=== PATIENT | female | born 1990 | race Caucasian/White ===

== ENCOUNTER 2019-09-28 10:37 | Inpatient (IN) | payer OTHER ==
[2019-09-28] MEDS ORDERED: Lidocaine 1% 50 ML MDV INJECT PRN (17:38)
[2019-09-28] MEDS ORDERED: Tranexamic Acid 1,000 MG in Sodium Chloride 0.9% 100 ML IV PRN (17:38)
[2019-09-28] MEDS ORDERED: Sodium Chloride 0.9% 2.5 ML Syringe FLUSH PRN (17:38)
[2019-09-28] MEDS ORDERED: Misoprostol 200 MCG Tab PO PRN (17:38)
[2019-09-28] MEDS ORDERED: Butorphanol 1 MG/ML SDV IVPUSH PRN (17:38)
[2019-09-28] MEDS ORDERED: Misoprostol 25 MCG (1/4 of 100 MCG) Tab VAG PRN ×2 (17:38)
[2019-09-28] MEDS ORDERED: Terbutaline 1 MG/ML SDV SUBCUT PRN (17:38)
[2019-09-28] MEDS ORDERED: Sodium Chloride 0.9% 10 ML Syringe FLUSH PRN (17:38)
[2019-09-28] MEDS ORDERED: Sodium Chloride 0.9% 10 ML SDV IV PRN (17:38)
[2019-09-28] MEDS ORDERED: Water For Irrigation,Sterile 1,000 ML Container IRR PRN (17:38)
[2019-09-28] MEDS ORDERED: Nalbuphine 10 MG/1 ML Vial IVPUSH PRN (17:38)
[2019-09-28] MEDS ORDERED: Methylergonovine 0.2 MG/1 ML Amp IM PRN (17:38)
[2019-09-28] MEDS ORDERED: Carboprost Tromethamine 250 MCG/1 ML Amp IM PRN (17:38)
[2019-09-28] MEDS ORDERED: Ondansetron 4 MG/2 ML SDV IVPUSH PRN (17:38)
[2019-09-28] MEDS ORDERED: Oxytocin/0.9 % Sodium Chloride 30 UNIT/500 ML BAG IV SCH ×2 (17:45)
[2019-09-28] MEDS ORDERED: Ampicillin 2 GM in Sodium Chloride 0.9% 100 ML IV ONE (18:00)
[2019-09-28] MEDS: Lactated Ringers 1,000 ML IV SCH (18:11)
[2019-09-28] MEDS: Ampicillin 1 GM in Sodium Chloride 0.9% 50 ML IV SCH (22:02)
[2019-09-29] MEDS ORDERED: fentaNYL 100 MCG/2 ML SDV ONE (01:38)
[2019-09-29] MEDS: Lactated Ringers 1,000 ML IV SCH (02:00)
[2019-09-29] MEDS: Ampicillin 1 GM in Sodium Chloride 0.9% 50 ML IV SCH ×3 (02:42→10:59)
--- NOTE | 2019-09-29 03:19 | PCM.PREANE ---
Preanesthetic Assessment - Anesthesia/Transfusion/Family Hx Anesthesia History: Prior Anesthesia Without Reaction Family History of Anesthesia Reaction: No Transfusion History: No Prior Transfusion(s) Intubation History: Unknown - Review of Systems General: No Symptoms Pulmonary: No Symptoms Cardiovascular: No Symptoms Gastrointestinal: No Symptoms Neurological: No Symptoms Other: Reports: None - Physical Assessment Height: 5 ft 5 in Weight: 89.267 kg ASA Class: 2 Mental Status: Alert & Oriented x3 Airway Class: Mallampati = 2 Dentition: Reports: Normal Dentition Thyro-Mental Finger Breadths: 3 Mouth Opening Finger Breadths: 3 ROM/Head Extension: Full Lungs: Clear to Auscultation, Normal Respiratory Effort Cardiovascular: Regular Rate, Regular Rhythm - Lab Values: Laboratory Last Values WBC 10.24 K/uL (4.0-11.0) 09/28/19 18:04 RBC 4.25 M/uL (4.30-5.90) L 09/28/19 18:04 Hgb 12.8 g/dL (12.0-16.0) 09/28/19 18:04 Hct 36.6 % (36.0-46.0) 09/28/19 18:04 MCV 86.1 fL (80.0-98.0) 09/28/19 18:04 MCH 30.1 pg (27.0-32.0) 09/28/19 18:04 MCHC 35.0 g/dL (31.0-37.0) 09/28/19 18:04 RDW Std Deviation 40.2 fl (28.0-62.0) 09/28/19 18:04 RDW Coeff of Jason 13 % (11.0-15.0) 09/28/19 18:04 Plt Count 210 K/uL (150-400) 09/28/19 18:04 MPV 10.20 fL (7.40-12.00) 09/28/19 18:04 Nucleated RBC % 0.0 /100WBC 09/28/19 18:04 Nucleated RBCs # 0 K/uL 09/28/19 18:04 Blood Type B POSITIVE 09/28/19 18:04 Antibody Screen NEGATIVE 09/28/19 18:04 - Allergies Allergies/Adverse Reactions: Allergies Allergy/AdvReac Type Severity Reaction Status Date / Time tea tree Allergy Rash Verified 09/28/19 17:47 - Blood Blood Available: No - Anesthesia Plan Pre-Op Medication Ordered: None - Acknowledgements Anesthesia Type Planned: Epidural Pt an Appropriate Candidate for the Planned Anesthesia: Yes Alternatives and Risks of Anesthesia Discussed w Pt/Guardian: Yes Pt/Guardian Understands and Agrees with Anesthesia Plan: Yes PreAnesthesia Questionnaire HEENT History: Reports: None Respiratory History: Reports: Other (See Below) Other Respiratory History: Exercised induced Asthma [employer] History: Reports: , Other (See Below) Other OB/BYN History: Abnormal pap >10 years Hematologic History: Reports: Other (See Below) Other Hematologic History: Prescribed Vitamin D in winter time for low Vitamin D levels - Infectious Disease History Infectious Disease History: Reports: Chicken Pox, Human Papilloma Virus (HPV), Mononucleosis - Past Surgical History HEENT Surgical History: Reports: Myringotomy w Tube(s) Respiratory Surgical History: Reports: None - SUBSTANCE USE Smoking Status *Q: Never Smoker Second Hand Smoke Exposure: No Days Per Week of Alcohol Use: 0 Recreational Drug Use History: No - HOME MEDS Home Medications: Home Meds Acetaminophen [Tylenol] 325 mg PO PRN 05/30/19 [History] Pnv No.95/Ferrous Fum/Folic AC [ Multivitamin Tablet] 1 each PO DAILY [History] Albuterol Sulfate [Albuterol Sulfate Hfa] 1 - 2 puff INH PRN 09/28/19 [History] - CURRENT (IN HOUSE) MEDS Current Meds: Current Medications Butorphanol Tartrate (Stadol) 1 mg IVPUSH Q1H PRN PRN Reason: Pain Carboprost Tromethamine (Hemabate Ds) 250 mcg IM ASDIRECTED PRN PRN Reason: Post Hemorrhage Ampicillin Sodium 1 gm/ Sodium (Chloride) 50 mls @ 100 mls/hr IV Q4H [facility] Last Admin: 09/29/19 02:42 Dose: 100 mls/hr Lactated Ringer's (Ringers, Lactated) 1,000 mls @ 150 mls/hr IV ASDIRECTED [facility] Last Admin: 09/29/19 02:00 Dose: 125 mls/hr Oxytocin/Sodium Chloride (Oxytocin 30 Unit/500 Ml-Ns) 30 unit in 500 mls @ 999 mls/hr IV TITRATE [facility] Oxytocin/Sodium Chloride (Oxytocin 30 Unit/500 Ml-Ns) 30 unit in 500 mls @ 2 mls/hr IV TITRATE [facility]; Protocol Tranexamic Acid 1,000 mg/ (Sodium Chloride) 110 mls @ 660 mls/hr IV ONETIME PRN PRN Reason: Bleeding Lidocaine HCl (Xylocaine 1%) 50 ml INJECT ONETIME PRN PRN Reason: Laceration repair Methylergonovine Maleate (Methergine) 0.2 mg IM ASDIRECTED PRN PRN Reason: Post Hemorrhage Misoprostol (Cytotec) 200 mcg PO ONETIME PRN PRN Reason: Post Hemorrhage Misoprostol (Cytotec) 25 mcg VAG ONETIME PRN PRN Reason: Cervical Ripening Last Admin: 09/28/19 18:12 Dose: 25 mcg Misoprostol (Cytotec) 25 mcg VAG Q4H PRN PRN Reason: Cervical Ripening Nalbuphine HCl (Nubain) 10 mg IVPUSH Q1H PRN PRN Reason: Pain (severe 7-10) Ondansetron HCl (Zofran) 4 mg IVPUSH Q6H PRN PRN Reason: Nausea/Vomiting Sodium Chloride (Saline Flush) 10 ml FLUSH ASDIRECTED PRN PRN Reason: Keep Vein Open Sodium Chloride (Saline Flush) 2.5 ml FLUSH ASDIRECTED PRN PRN Reason: Keep Vein Open Sodium Chloride (Normal Saline) 10 ml IV ASDIRECTED PRN PRN Reason: IV Use Sterile Water (Sterile Water For Irrigation) 1,000 ml IRR ASDIRECTED PRN PRN Reason: delivery Terbutaline Sulfate (Brethine) 0.25 mg SUBCUT ASDIRECTED PRN PRN Reason: Tacysystole Discontinued Medications Fentanyl (Sublimaze) Confirm Administered Dose 100 mcg .ROUTE .STK-MED ONE Stop: 09/29/19 01:39 Ampicillin Sodium 2 gm/ Sodium (Chloride) 100 mls @ 200 mls/hr IV ONETIME ONE Stop: 09/28/19 18:29 Last Admin: 09/28/19 18:11 Dose: 200 mls/hr Fentanyl/Bupivacaine HCl (Cykodded-Yfvby-Au 2 Mcg/Ml-0.125%) Confirm Administered Dose 100 mls @ as directed .ROUTE .STK-MED ONE Stop: 09/29/19 01:40
[2019-09-29] MEDS ORDERED: Ampicillin 1 GM AdvVial IV ONE (06:43)
--- NOTE | 2019-09-29 10:36 | PCM.DEL ---
L & D Note - General Info Date of Service: 09/29/19 Mother's Due Date: 09/28/19 - Delivery Note Labor: Induced by Oxytocin Cervical Ripening Method: Misoprostil Delivery Outcome: Livebirth Infant Delivery Method: Spontaneous Vaginal Delivery-Single Presentation: Left Occiput Anterior (MAGED) Nuchal Cord: None Prep: Other Anesthesia Type: None, Epidural Anesthetic: Lidocaine (Xylocaine) 1% Plain Local Anesthetic Volume: Other (15 ml) Amniotic Fluid Description: Clear Episiotomy Type: None Laceration: 3rd Degree Suture type: Vicryl Suture size: 3-0 Placenta: Intact, Spontaneous Cord: 3 Vessels Resuscitation Needed: No Dinosaur: Bulb Syringe Score 1 min: 9 Score 5 min: 9 - General Info Date of Service: 09/29/19 - Patient Data Weight - Most Recent: 89.267 kg Lab Results Last 24 Hours: Laboratory Results - last 24 hr 09/28/19 09/28/19 Range/Units 18:04 18:04 WBC 10.24 (4.0-11.0) K/uL RBC 4.25 L (4.30-5.90) M/uL Hgb 12.8 (12.0-16.0) g/dL Hct 36.6 (36.0-46.0) % MCV 86.1 (80.0-98.0) fL MCH 30.1 (27.0-32.0) pg MCHC 35.0 (31.0-37.0) g/dL RDW Std Deviation 40.2 (28.0-62.0) fl RDW Coeff of Jason 13 (11.0-15.0) % Plt Count 210 (150-400) K/uL MPV 10.20 (7.40-12.00) fL Nucleated RBC % 0.0 /100WBC Nucleated RBCs # 0 K/uL Blood Type B POSITIVE Antibody Screen NEGATIVE Med Orders - Current: Current Medications Butorphanol Tartrate (Stadol) 1 mg IVPUSH Q1H PRN PRN Reason: Pain Carboprost Tromethamine (Hemabate Ds) 250 mcg IM ASDIRECTED PRN PRN Reason: Post Hemorrhage Ampicillin Sodium 1 gm/ Sodium (Chloride) 50 mls @ 100 mls/hr IV Q4H [facility] Last Admin: 09/29/19 06:48 Dose: 100 mls/hr Lactated Ringer's (Ringers, Lactated) 1,000 mls @ 150 mls/hr IV ASDIRECTED [facility] Last Admin: 09/29/19 02:00 Dose: 125 mls/hr Oxytocin/Sodium Chloride (Oxytocin 30 Unit/500 Ml-Ns) 30 unit in 500 mls @ 999 mls/hr IV TITRATE [facility] Oxytocin/Sodium Chloride (Oxytocin 30 Unit/500 Ml-Ns) 30 unit in 500 mls @ 2 mls/hr IV TITRATE [facility]; Protocol Tranexamic Acid 1,000 mg/ (Sodium Chloride) 110 mls @ 660 mls/hr IV ONETIME PRN PRN Reason: Bleeding Lidocaine HCl (Xylocaine 1%) 50 ml INJECT ONETIME PRN PRN Reason: Laceration repair Last Admin: 09/29/19 09:40 Dose: 50 ml Methylergonovine Maleate (Methergine) 0.2 mg IM ASDIRECTED PRN PRN Reason: Post Hemorrhage Misoprostol (Cytotec) 200 mcg PO ONETIME PRN PRN Reason: Post Hemorrhage Misoprostol (Cytotec) 25 mcg VAG ONETIME PRN PRN Reason: Cervical Ripening Last Admin: 09/28/19 18:12 Dose: 25 mcg Misoprostol (Cytotec) 25 mcg VAG Q4H PRN PRN Reason: Cervical Ripening Nalbuphine HCl (Nubain) 10 mg IVPUSH Q1H PRN PRN Reason: Pain (severe 7-10) Ondansetron HCl (Zofran) 4 mg IVPUSH Q6H PRN PRN Reason: Nausea/Vomiting Sodium Chloride (Saline Flush) 10 ml FLUSH ASDIRECTED PRN PRN Reason: Keep Vein Open Sodium Chloride (Saline Flush) 2.5 ml FLUSH ASDIRECTED PRN PRN Reason: Keep Vein Open Sodium Chloride (Normal Saline) 10 ml IV ASDIRECTED PRN PRN Reason: IV Use Sterile Water (Sterile Water For Irrigation) 1,000 ml IRR ASDIRECTED PRN PRN Reason: delivery Last Admin: 09/29/19 09:40 Dose: 1,000 ml Terbutaline Sulfate (Brethine) 0.25 mg SUBCUT ASDIRECTED PRN PRN Reason: Tacysystole Discontinued Medications Ampicillin Sodium (Ampicillin) Confirm Administered Dose 1 gm IV .STK-MED ONE Stop: 09/29/19 06:44 Last Admin: 09/29/19 07:22 Dose: Not Given Fentanyl (Sublimaze) Confirm Administered Dose 100 mcg .ROUTE .STK-MED ONE Stop: 09/29/19 01:39 Last Admin: 09/29/19 07:22 Dose: Not Given Ampicillin Sodium 2 gm/ Sodium (Chloride) 100 mls @ 200 mls/hr IV ONETIME ONE Stop: 09/28/19 18:29 Last Admin: 09/28/19 18:11 Dose: 200 mls/hr Fentanyl/Bupivacaine HCl (Dedloiev-Hyzga-Ej 2 Mcg/Ml-0.125%) Confirm Administered Dose 100 mls @ as directed .ROUTE .STK-MED ONE Stop: 09/29/19 01:40 Last Admin: 09/29/19 07:22 Dose: Not Given - Problem List & Annotations (1) Vaginal delivery SNOMED Code(s): 934960709 Code(s): O80 - ENCOUNTER FOR FULL-TERM UNCOMPLICATED DELIVERY Status: Acute Current Visit: Yes - Problem List Review Problem List Initiated/Reviewed/Updated: Yes
[2019-09-29] MEDS ORDERED: Lanolin 100% Cream 7 GM Tube TOP PRN (10:37)
[2019-09-29] MEDS ORDERED: Acetaminophen 500 MG Tab PO PRN (10:37)
[2019-09-29] MEDS ORDERED: Ibuprofen 400 MG Tab PO PRN (10:37)
[2019-09-29] MEDS ORDERED: Bisacodyl 10 MG Supp RECTAL PRN (10:37)
[2019-09-29] MEDS ORDERED: oxyCODONE 5 MG Tab PO PRN (10:37)
[2019-09-29] MEDS: Witch Hazel Medicated Pads 40/Jar TOP PRN (11:07)
[2019-09-29] MEDS: Benzocaine/Menthol 20%-0.5% Spray 78 GM Cannister TOP PRN (11:08)
[2019-09-29] MEDS: Docusate Sodium 100 MG Cap PO PRN ×2 (11:08→21:55)
[2019-09-29] MEDS: Ibuprofen 800 MG Tab PO PRN ×2 (11:10→17:10)
--- NOTE | 2019-09-29 11:35 | OR ---
SURGEON: Mirta Elliott M.D. DATE OF PROCEDURE: 09/28/2019 PREOPERATIVE DIAGNOSES: 1. A 40-1/7 weeks' intrauterine . 2. Group B strep positive. 3. Induction of labor. POSTOPERATIVE DIAGNOSES: 1. A 40-1/7 weeks' intrauterine . 2. Group B strep positive. 3. Induction of labor. PROCEDURES: Group B strep prophylaxis, Cytotec and Pitocin induction of labor, term spontaneous vaginal delivery, repair of third-degree laceration. PRIMARY SURGEON: Mirta Elliott MD. ANESTHESIA: Epidural and local. ESTIMATED BLOOD LOSS: Less than 200 mL. FINDINGS: Liveborn male. scores 9 and 9. Weight is pending at the time of dictation. Placenta delivered spontaneously, Schultze intact, with 3 vessels. There were no periurethral, vaginal sidewall, cervical, or rectal lacerations. There was a third-degree perineal laceration with a defect in the anal sphincter at 2 o'clock, approximately 80% of the way through the sphincter. COMPLICATIONS: None known. DISPOSITION: Mother and baby are in LDR in good condition. BRIEF HISTORY: This is a 29-year-old female, G1, P0. She presents at 40-1/7 weeks' gestation for induction of labor. She received a single dose of Cytotec followed by Pitocin. By 4 a.m., she had spontaneous rupture of membranes. At 6 a.m., she was 6 cm dilated. By 8:30 a.m., she was 10 cm dilated and with a category 1, brief episodes of category 2, heart tones. She received multiple doses of ampicillin at this point. She had also received an epidural for pain control. DESCRIPTION OF PROCEDURE: With the patient in dorsal lithotomy position, the patient pushed over approximately a 1 hour time-period to a 5+ station at which time the head was delivered spontaneously and atraumatically over the perineum with support with subsequent delivery of the infant's shoulders and body without any difficulty. The was bulb suctioned by nose and mouth, and after the cord had ceased to pulsate, it was doubly clamped and cut. The was handed to the mother in the presence of nurse attending delivery. The infant was a liveborn male. scores 9 and 9. Weight is pending at the time of dictation. Cord blood was collected for cord ABGs as well as routine cord blood sampling. Pitocin was initiated after delivery of the to assist with delivery of the placenta, which was delivered spontaneously, Schultze intact, with 3 vessels. Upon inspection of the pelvis and perineum, there were no periurethral, vaginal sidewall, cervical, or rectal lacerations. There was a third-degree perineal laceration with a 2 o'clock defect in the sphincter that was approximately 80% through. After multiple doses with her epidural bolus as well as 15 mL of 1% lidocaine being injected, the sphincter was grasped with a Carole and within the capsule of the sphincter four [id number] sutures of 3-0 PDS were placed with good approximation of the sphincter. Rectal exam was performed. There was no defect in the rectal mucosa. Also there, was good support after closure of the sphincter defect. The deep perineal tissue was then reapproximated with multiple [id number] sutures of 3-0 Vicryl followed by a running lock suture of 3-0 Vicryl for the vaginal mucosa, a deep running suture of the same for the remainder of the perineal defect, and running subcuticular suture of the same for the skin. Final sponge, needle, and instrument counts were reported as correct. There were no known complications. Mother and baby are in LDR in good condition. ARCENIO ASENCIO /[id number]
--- NOTE | 2019-09-29 14:59 | PCM.POSTAN ---
POST ANESTHESIA ASSESSMENT - MENTAL STATUS Mental Status: Alert, Oriented - RESPIRATORY Respiratory Status: Respiratory Rate WNL, Airway Patent, O2 Saturation Stable - CARDIOVASCULAR CV Status: Pulse Rate WNL, Blood Pressure Stable - GASTROINTESTINAL GI Status: No Symptoms - PAIN Pain Score: 0 - POST OP HYDRATION Hydration Status: Adequate & Stable
--- NOTE | 2019-09-29 20:40 | PCM48HPAN ---
Post Anesthesia Note - EVALUATION WITHIN 48HRS OF ANESTHETIC Vital Signs in Normal Range: Yes Patient Participated in Evaluation: Yes Respiratory Function Stable: Yes Airway Patent: Yes Cardiovascular Function Stable: Yes Hydration Status Stable: Yes Pain Control Satisfactory: Yes Nausea and Vomiting Control Satisfactory: Yes Mental Status Recovered: Yes Vital Signs: Last Vital Signs Temp 36.9 C 09/29/19 19:26 Pulse 63 09/29/19 19:26 Resp 18 09/29/19 19:26 BP 105/73 09/29/19 19:26 Pulse Ox 97 09/29/19 19:26
[2019-09-30] MEDS: Ibuprofen 800 MG Tab PO PRN ×3 (01:30→15:15)
[2019-09-30] MEDS: Acetaminophen 500 MG Tab PO PRN ×3 (01:31→13:08)
[2019-09-30] MEDS: Witch Hazel Medicated Pads 40/Jar TOP PRN (09:11)
[2019-09-30] MEDS: Docusate Sodium 100 MG Cap PO PRN (09:13)
[2019-09-30] MEDS: Benzocaine/Menthol 20%-0.5% Spray 78 GM Cannister TOP PRN (09:13)
--- NOTE | 2019-09-30 09:50 | PCM.PNPP ---
- General Info Date of Service: 09/30/19 Functional Status: Reports: Pain Controlled, Tolerating Diet, Ambulating, Urinating - Review of Systems General: Reports: No Symptoms HEENT: Reports: No Symptoms Pulmonary: Reports: No Symptoms Cardiovascular: Reports: No Symptoms Gastrointestinal: Reports: No Symptoms Genitourinary: Reports: No Symptoms Musculoskeletal: Reports: No Symptoms Skin: Reports: No Symptoms Neurological: Reports: No Symptoms Psychiatric: Reports: No Symptoms - General Info Date of Service: 09/30/19 - Patient Data Vital Signs - Most Recent: Last Vital Signs Temp 36.5 C 09/30/19 04:34 Pulse 75 09/30/19 04:34 Resp 18 09/30/19 04:34 BP 107/74 09/30/19 04:34 Pulse Ox 95 09/30/19 04:34 Weight - Most Recent: 89.267 kg Lab Results - Last 24 Hours: Laboratory Results - last 24 hr 09/29/19 09/30/19 Range/Units 09:29 05:35 Hgb 9.2 L (12.0-16.0) g/dL Hct 26.6 L (36.0-46.0) % Cord ABG pH 7.51 H (7.18-7.38) Cord ABG Base Excess -6 (-10--2) Cord VBG pH 7.301 (7.25-7.45) Cord VBG Base Excess -6 (-10--2) Med Orders - Current: Current Medications Acetaminophen (Tylenol Extra Strength) 500 mg PO Q4H PRN PRN Reason: Pain Acetaminophen (Tylenol Extra Strength) 1,000 mg PO Q4H PRN PRN Reason: Pain Last Admin: 09/30/19 06:20 Dose: 1,000 mg Benzocaine/Menthol (Dermoplast Pain Relief 20%-0.5% Redkey) 78 gm TOP ASDIRECTED PRN PRN Reason: Perineal Comfort Measure Last Admin: 09/30/19 09:13 Dose: 1 can Bisacodyl (Dulcolax) 10 mg RECTAL ONETIME PRN PRN Reason: Constipation Docusate Sodium (Colace) 100 mg PO BID PRN PRN Reason: Constipation Last Admin: 09/30/19 09:13 Dose: 100 mg Emollient Ointment (Lansinoh Hpa) 0 gm TOP ASDIRECTED PRN PRN Reason: Sore Nipples Last Admin: 09/29/19 11:08 Dose: 1 tube Ibuprofen (Motrin) 400 mg PO Q4H PRN PRN Reason: Pain Ibuprofen (Motrin) 800 mg PO Q6H PRN PRN Reason: Pain Last Admin: 09/30/19 07:56 Dose: 800 mg Oxycodone HCl (Oxycodone) 5 mg PO Q2H PRN PRN Reason: Pain Witch Razia (Tucks) 1 pad TOP ASDIRECTED PRN PRN Reason: comfort care Last Admin: 09/30/19 09:11 Dose: 1 canister Discontinued Medications Ampicillin Sodium (Ampicillin) Confirm Administered Dose 1 gm IV .STK-MED ONE Stop: 09/29/19 06:44 Last Admin: 09/29/19 07:22 Dose: Not Given Butorphanol Tartrate (Stadol) 1 mg IVPUSH Q1H PRN PRN Reason: Pain Carboprost Tromethamine (Hemabate Ds) 250 mcg IM ASDIRECTED PRN PRN Reason: Post Hemorrhage Fentanyl (Sublimaze) Confirm Administered Dose 100 mcg .ROUTE .STK-MED ONE Stop: 09/29/19 01:39 Last Admin: 09/29/19 07:22 Dose: Not Given Ampicillin Sodium 2 gm/ Sodium (Chloride) 100 mls @ 200 mls/hr IV ONETIME ONE Stop: 09/28/19 18:29 Last Admin: 09/28/19 18:11 Dose: 200 mls/hr Ampicillin Sodium 1 gm/ Sodium (Chloride) 50 mls @ 100 mls/hr IV Q4H [facility] Last Admin: 09/29/19 10:59 Dose: Not Given Lactated Ringer's (Ringers, Lactated) 1,000 mls @ 150 mls/hr IV ASDIRECTED [facility] Last Admin: 09/29/19 02:00 Dose: 125 mls/hr Oxytocin/Sodium Chloride (Oxytocin 30 Unit/500 Ml-Ns) 30 unit in 500 mls @ 999 mls/hr IV TITRATE [facility] Oxytocin/Sodium Chloride (Oxytocin 30 Unit/500 Ml-Ns) 30 unit in 500 mls @ 2 mls/hr IV TITRATE [facility]; Protocol Tranexamic Acid 1,000 mg/ (Sodium Chloride) 110 mls @ 660 mls/hr IV ONETIME PRN PRN Reason: Bleeding Fentanyl/Bupivacaine HCl (Ipzhvjnm-Qvgiz-Ik 2 Mcg/Ml-0.125%) Confirm Administered Dose 100 mls @ as directed .ROUTE .STK-MED ONE Stop: 09/29/19 01:40 Last Admin: 09/29/19 07:22 Dose: Not Given Lidocaine HCl (Xylocaine 1%) 50 ml INJECT ONETIME PRN PRN Reason: Laceration repair Last Admin: 09/29/19 09:40 Dose: 50 ml Methylergonovine Maleate (Methergine) 0.2 mg IM ASDIRECTED PRN PRN Reason: Post Hemorrhage Misoprostol (Cytotec) 200 mcg PO ONETIME PRN PRN Reason: Post Hemorrhage Misoprostol (Cytotec) 25 mcg VAG ONETIME PRN PRN Reason: Cervical Ripening Last Admin: 09/28/19 18:12 Dose: 25 mcg Misoprostol (Cytotec) 25 mcg VAG Q4H PRN PRN Reason: Cervical Ripening Nalbuphine HCl (Nubain) 10 mg IVPUSH Q1H PRN PRN Reason: Pain (severe 7-10) Ondansetron HCl (Zofran) 4 mg IVPUSH Q6H PRN PRN Reason: Nausea/Vomiting Sodium Chloride (Saline Flush) 10 ml FLUSH ASDIRECTED PRN PRN Reason: Keep Vein Open Sodium Chloride (Saline Flush) 2.5 ml FLUSH ASDIRECTED PRN PRN Reason: Keep Vein Open Sodium Chloride (Normal Saline) 10 ml IV ASDIRECTED PRN PRN Reason: IV Use Sterile Water (Sterile Water For Irrigation) 1,000 ml IRR ASDIRECTED PRN PRN Reason: delivery Last Admin: 09/29/19 09:40 Dose: 1,000 ml Terbutaline Sulfate (Brethine) 0.25 mg SUBCUT ASDIRECTED PRN PRN Reason: Tacysystole - Interaction Infant Disposition, : in Room with Family Infant Interaction: Holding Feeding: Breastfed ; Nursed Well Support Person: - Recovery Exam Fundal Tone: Firm Fundal Level: 1 Fingerbreadths Below Umbilicus Fundal Placement: Midline Lochia Amount: Scant Lochia Color: Rubra/Red Perineum Description: Other (see below) Other Perinuem Description: 3rd degree laceration Episiotomy/Laceration: Approximated Bladder Status: Voiding Urinary Elimination: Voided - Exam General: Alert HEENT: Pupils Equal Neck: Supple Lungs: Normal Respiratory Effort GI/Abdominal Exam: Soft, Non-Tender Extremities: Normal Inspection, No Pedal Edema Skin: Warm, Dry, Intact Wound/Incisions: Other (perineal is without swelling, small amount of bruising, intact.) Neurological: No New Focal Deficit Psy/Mental Status: Alert, Normal Affect, Normal Mood - Problem List & Annotations (1) Vaginal delivery SNOMED Code(s): 312718967 Code(s): O80 - ENCOUNTER FOR FULL-TERM UNCOMPLICATED DELIVERY Status: Acute Current Visit: Yes - Problem List Review Problem List Initiated/Reviewed/Updated: Yes - My Orders Last 24 Hours: My Active Orders 09/29/19 10:37 Patient Status [ADT] Routine May Shower [RC] ASDIRECTED Up ad Emelyn [RC] ASDIRECTED Vital Signs [RC] PER UNIT ROUTINE Acetaminophen [Tylenol Extra Strength] 1,000 mg PO Q4H PRN Acetaminophen [Tylenol Extra Strength] 500 mg PO Q4H PRN Benzocaine/Menthol [Dermoplast Pain Relief 20%-0.5% Redkey] 78 gm TOP ASDIRECTED PRN Bisacodyl [Dulcolax] 10 mg RECTAL ONETIME PRN Docusate Sodium [Colace] 100 mg PO BID PRN Ibuprofen [Motrin] 400 mg PO Q4H PRN Ibuprofen [Motrin] 800 mg PO Q6H PRN Lanolin [Lansinoh HPA] See Dose Instructions TOP ASDIRECTED PRN Witch Razia [Tucks] 1 pad TOP ASDIRECTED PRN oxyCODONE 5 mg PO Q2H PRN Assess Lochia [WOMSER] Per Unit Routine Assess Uterine Involution [WOMSER] Per Unit Routine Peripheral IV Discontinue [OM.PC] Routine Resuscitation Status Routine 09/29/19 10:38 Perineal Care [OM.PC] Per Unit Routine 09/29/19 Lunch Regular Diet [DIET] - Assessment Assessment:: PPD#1 after , stable minimal lochia, pain well controlled would like to go home today. - Plan Plan:: Discharge instructions reviewed. Precautions to continue on stool softener, avoid heavy lifting for 2 weeks.
== END 2019-09-30 15:25 | disposition home or self-care (01) | DRG 768 ==
LOC: MW.OB 10:37 → OBSVTOIN 09-29 10:37 → MW.OB 09-29 15:08
PROVIDERS: ADMIT Obstetrics & Gynecology; ATTEND Obstetrics & Gynecology
PROC: 10E0XZZ Delivery of Products of Conception, External Approach (ICD-10-PCS; principal; 2019-09-29)
PROC: 0DQR0ZZ Repair Anal Sphincter, Open Approach (ICD-10-PCS; 2019-09-29)
PROC: 3E0P7VZ Introduction of Hormone into Female Reproductive, Via Natural or Artificial Opening (ICD-10-PCS; 2019-09-29)
PROC: 3E033VJ Introduction of Other Hormone into Peripheral Vein, Percutaneous Approach (ICD-10-PCS; 2019-09-29)
DX: O48.0 Post-term pregnancy (principal); Z37.0 Single live birth; O70.20 Third degree perineal laceration during delivery, unspecified; O76 Abnormality in fetal heart rate and rhythm complicating labor and delivery; O99.824 Streptococcus B carrier state complicating childbirth; Z3A.40 40 weeks gestation of pregnancy
CPT/HCPCS: 01967; 36415; 59025; 59409; 82803; 85014; 85018; 85027; 86593; 86850; 86900; 86901; A9270-GY; J0290; J2001; J3010; J7030; J7050; J7120

== ENCOUNTER 2021-06-05 06:33 | Day surgery (SDC) | payer OTHER ==
[~2021-06-05 06:33] MED LIST: Lactated Ringers 1,000 ML IV SCH; Sodium Chloride 0.9% 10 ML SDV IV PRN; Sodium Chloride 0.9% 10 ML Syringe FLUSH PRN; Sodium Chloride 0.9% 2.5 ML Syringe FLUSH PRN; ceFAZolin 2 GM in Premix Bag 1 BAG IV ONE
[2021-06-05] MEDS ORDERED: Lidocaine 2% 5 ML SDV ONE (06:44)
[2021-06-05] MEDS ORDERED: propofoL 100 ML ONE (06:44)
[2021-06-05] MEDS ORDERED: fentaNYL 100 MCG/2 ML SDV ONE (06:44)
[2021-06-05] MEDS ORDERED: Ketorolac 30 MG/ML SDV ONE (06:44)
[2021-06-05] MEDS ORDERED: Ondansetron 4 MG/2 ML SDV ONE ×2 (06:44)
[2021-06-05] MEDS ORDERED: Lidocaine 1% 20 ML MDV ONE (07:21)
[2021-06-05] MEDS ORDERED: Bupivacaine 0.5% 30 ML SDV ONE (07:21)
[2021-06-05] MEDS ORDERED: fentaNYL 100 MCG/2 ML SDV IVPUSH PRN (07:27)
[2021-06-05] MEDS ORDERED: Ondansetron 4 MG/2 ML SDV IVPUSH PRN (07:27)
[2021-06-05] MEDS ORDERED: Naloxone 0.4 MG/ML Syringe IVPUSH PRN (07:27)
[2021-06-05] MEDS ORDERED: Morphine 2 MG/ML SYRINGE IVPUSH PRN (07:27)
[2021-06-05] MEDS ORDERED: Albuterol 0.083% 2.5 MG/3 ML Neb Soln NEB PRN (07:27)
[2021-06-05] MEDS ORDERED: Metoclopramide 10 MG/2 ML SDV IVPUSH PRN (07:27)
[2021-06-05] MEDS ORDERED: HYDROmorphone 2 MG/ML Syringe IVPUSH PRN (07:27)
--- NOTE | 2021-06-05 07:29 | PCM.PREANE ---
Preanesthetic Assessment - Anesthesia/Transfusion/Family Hx Anesthesia History: Prior Anesthesia Without Reaction Transfusion History: No Prior Transfusion(s) Intubation History: Unknown - Review of Systems General: No Symptoms Pulmonary: No Symptoms Cardiovascular: No Symptoms Gastrointestinal: No Symptoms Neurological: No Symptoms Other: Reports: None - Physical Assessment NPO Status Date: 06/05/21 Vital Signs: Last Vital Signs Temp 97.7 F 06/05/21 06:50 Pulse 69 06/05/21 06:50 Resp 16 06/05/21 06:50 BP 109/73 06/05/21 06:50 Pulse Ox 98 06/05/21 06:50 Height: 5 ft 5 in Weight: 170 lb ASA Class: 1 Mental Status: Alert & Oriented x3 Airway Class: Mallampati = 1 Dentition: Reports: Normal Dentition Thyro-Mental Finger Breadths: 3 Mouth Opening Finger Breadths: 3 ROM/Head Extension: Full Lungs: Clear to Auscultation, Normal Respiratory Effort Cardiovascular: Regular Rate, Regular Rhythm - Lab Values: Laboratory Last Values Urine HCG, Qual NEGATIVE (NEGATIVE) 06/05/21 06:55 - Allergies Allergies/Adverse Reactions: Allergies Allergy/AdvReac Type Severity Reaction Status Date / Time tea tree Allergy Rash Verified 05/30/21 12:17 - Acknowledgements Anesthesia Type Planned: General Anesthesia Pt an Appropriate Candidate for the Planned Anesthesia: Yes Alternatives and Risks of Anesthesia Discussed w Pt/Guardian: Yes Pt/Guardian Understands and Agrees with Anesthesia Plan: Yes PreAnesthesia Questionnaire HEENT History: Reports: Other (See Below) Other HEENT History: wears glasses/contacts, states she is at high risk for retinal detachment Cardiovascular History: Reports: None Respiratory History: Reports: Asthma Other Respiratory History: has exercise induced asthma- uses inhaler with every workout Gastrointestinal History: Reports: None Genitourinary History: Reports: None MICROFILM CLERK History: Reports: None Other OB/BYN History: Abnormal pap >10 years Musculoskeletal History: Reports: None Neurological History: Reports: None Psychiatric History: Reports: None Endocrine/Metabolic History: Reports: None Hematologic History: Reports: None Other Hematologic History: Prescribed Vitamin D in winter time for low Vitamin D levels Immunologic History: Reports: None Oncologic (Cancer) History: Reports: None Dermatologic History: Reports: None - Infectious Disease History Infectious Disease History: Reports: Chicken Pox, Human Papilloma Virus (HPV), Mononucleosis - Past Surgical History Head Surgeries/Procedures: Reports: None HEENT Surgical History: Reports: Myringotomy w Tube(s) Cardiovascular Surgical History: Reports: None Respiratory Surgical History: Reports: None GI Surgical History: Reports: None Female Surgical History: Reports: None Endocrine Surgical History: Reports: None Neurological Surgical History: Reports: None Musculoskeletal Surgical History: Reports: None Oncologic Surgical History: Reports: None Dermatological Surgical History: Reports: None - SUBSTANCE USE Tobacco Use Status *Q: Never Tobacco User Recreational Drug Use History: No - HOME MEDS Home Medications: Home Meds Albuterol Sulfate [Proventil Hfa] 1 puff INH ASDIRECTED PRN 05/30/21 [History] norethindrone ac-eth estradioL [Norethind-Eth Estrad 1-0.02 mg] 1 tab PO QPM 05/30/21 [History] - CURRENT (IN HOUSE) MEDS Current Meds: Current Medications Lactated Ringer's (Ringers, Lactated) 1,000 mls @ 125 mls/hr IV ASDIRECTED [facility] Last Admin: 06/05/21 07:18 Dose: 125 mls/hr Documented by: Sodium Chloride (Sodium Chloride 0.9% 2.5 Ml Syringe) 2.5 ml FLUSH ASDIRECTED PRN PRN Reason: Keep Vein Open Sodium Chloride (Sodium Chloride 0.9% 10 Ml Sdv) 10 ml IV ASDIRECTED PRN PRN Reason: IV Use Sodium Chloride (Sodium Chloride 0.9% 10 Ml Syringe) 10 ml FLUSH ASDIRECTED PRN PRN Reason: Keep Vein Open Discontinued Medications Bupivacaine HCl (Bupivacaine 0.5% 30 Ml Sdv) Confirm Administered Dose 30 ml .ROUTE .STK-MED ONE Stop: 06/05/21 07:22 Fentanyl (Fentanyl 100 Mcg/2 Ml Sdv) Confirm Administered Dose 100 mcg .ROUTE .STK-MED ONE Stop: 06/05/21 06:45 Cefazolin Sodium/Dextrose 2 gm (/ Premix) 50 mls @ 100 mls/hr IV ONETIME ONE Stop: 06/04/21 10:01 Propofol (Diprivan 100 Ml) Confirm Administered Dose 100 mls @ as directed .ROUTE .STK-MED ONE Stop: 06/05/21 06:45 Ketorolac Tromethamine (Ketorolac 30 Mg/Ml Sdv) Confirm Administered Dose 30 mg .ROUTE .STK-MED ONE Stop: 06/05/21 06:45 Lidocaine (Lidocaine 2% 5 Ml Sdv) Confirm Administered Dose 5 ml .ROUTE .STK-MED ONE Stop: 06/05/21 06:45 Lidocaine HCl (Lidocaine 1% 20 Ml Mdv) Confirm Administered Dose 20 ml .ROUTE .STBondsy-MED ONE Stop: 06/05/21 07:22 Ondansetron HCl (Ondansetron 4 Mg/2 Ml Sdv) Confirm Administered Dose 4 mg .ROUTE .STBondsy-MED ONE Stop: 06/05/21 06:45 Ondansetron HCl (Ondansetron 4 Mg/2 Ml Sdv) Confirm Administered Dose 4 mg .ROUTE .STBondsy-MED ONE Stop: 06/05/21 06:45
[2021-06-05] MEDS ORDERED: ceFAZolin 1 GM Vial ONE (07:51)
[2021-06-05] MEDS ORDERED: Dexamethasone 4 MG/ML 5 ML MDV ONE (08:08)
[2021-06-05] MEDS ORDERED: Metoclopramide 10 MG/2 ML SDV ONE (08:08)
[2021-06-05] MEDS ORDERED: ePHEDrine 50 MG/ML SDV ONE (08:16)
--- NOTE | 2021-06-05 08:44 | PCM.POSTAN ---
POST ANESTHESIA ASSESSMENT - MENTAL STATUS Mental Status: Somnolent - VITAL SIGNS Vital Signs: Last Vital Signs Temp 97.7 F 06/05/21 06:50 Pulse 69 06/05/21 06:50 Resp 16 06/05/21 06:50 BP 109/73 06/05/21 06:50 Pulse Ox 98 06/05/21 06:50 - RESPIRATORY Respiratory Status: Respiratory Rate WNL, Airway Patent, O2 Saturation Stable - CARDIOVASCULAR CV Status: Pulse Rate WNL, Blood Pressure Stable - GASTROINTESTINAL GI Status: No Symptoms - POST OP HYDRATION Hydration Status: Adequate & Stable
--- NOTE | 2021-06-05 08:45 | PCM48HPAN ---
Post Anesthesia Note - EVALUATION WITHIN 48HRS OF ANESTHETIC Vital Signs in Normal Range: Yes Patient Participated in Evaluation: Yes Respiratory Function Stable: Yes Airway Patent: Yes Cardiovascular Function Stable: Yes Hydration Status Stable: Yes Pain Control Satisfactory: Yes Nausea and Vomiting Control Satisfactory: Yes Mental Status Recovered: Yes Vital Signs: Last Vital Signs Temp 97.7 F 06/05/21 06:50 Pulse 69 06/05/21 06:50 Resp 16 06/05/21 06:50 BP 109/73 06/05/21 06:50 Pulse Ox 98 06/05/21 06:50
--- NOTE | 2021-06-05 08:53 | PCM.OPNOTE ---
- General Post-Op/Procedure Note Date of Surgery/Procedure: 06/05/21 Operative Procedure(s): Incision and drainage infected sebaceous cyst Findings: 3 cm sebaceous cyst that was infected. unroofed portion 1.5 x 0.5 x 1 cm Pre Op Diagnosis: Sebaceous cyst Post-Op Diagnosis: infected sebaceous cyst Anesthesia Technique: [facility] [place] Primary Surgeon: Shae Church Condition: Good Free Text/Narrative:: Intake & Output 06/04/21 06/05/21 06/05/21 22:59 06:59 14:59 Intake Total 700 Balance 700
--- NOTE | 2021-06-05 14:31 | OR ---
SURGEON: SHAE CHURCH MD DATE OF PROCEDURE: 06/05/2021 PREOPERATIVE DIAGNOSIS: Sebaceous cyst of back. POSTOPERATIVE DIAGNOSIS: Infected sebaceous cyst of back. PROCEDURE PERFORMED: Incision and drainage of infected sebaceous cyst. PRIMARY SURGEON: Shae Church MD ANESTHESIA: General LMA. FLUIDS: See Anesthesia record. ESTIMATED BLOOD LOSS: 5 mL. FINDINGS: 3 cm infected sebaceous cyst. 1.5 x 0.5 x 1 cm excised area of tissue. COMPLICATIONS: None. INDICATIONS: The patient is a 31-year-old female who came to my office with a midback mass. She states that it will become infected and drain, then refill, get infected and drain again. On exam, the patient appeared to have a large sebaceous cyst. This was too large to excise in clinic. I explained the need to go to the operating room to have this done under anesthesia. I explained the procedure, expected perioperative course, and risks including bleeding or infection. She verbalized understanding and wishes to proceed. PROCEDURE IN DETAIL: The patient was brought into the OR and placed on the OR cart in a left lateral decubitus position. A time-out was completed verifying the patient's name, age, date of , allergies, and procedure to be performed. General LMA anesthesia was induced. The back was prepped and draped in usual standard fashion. I anesthetized the area around the mass with 0.5% Marcaine plain. There was a small opening on the skin and this appeared to be draining purulent material. An elliptical incision was made around this area using a 15 blade. Cautery was used to dissect down to the level of subcutaneous fat. I immediately encountered a large amount of purulent material. This was cultured and sent for Gram stain. The purulent material was suctioned out. The patient appeared to have an infected 3 cm sebaceous cyst. I was unable to excise the cyst wall given the degree of inflammation. The decision was made to pack the wound open given its infected nature. I irrigated the wound copiously with normal saline. I then packed it with 1-inch packing strip and covered it with 4x4 dressings. The excised piece of tissue was measured on the back table. It measured 1.5 cm x 0.5 cm x 1 cm in size. The dressings were secured with tape. The patient was extubated and taken to PACU in stable condition. All counts were complete and correct at the end of the case. SHAAN / ELIF /[id number]
== END 2021-06-05 09:40 | disposition home or self-care (01) ==
LOC: MW.SDS 06:33
PROVIDERS: ATTEND Surgery
DX: L72.3 Sebaceous cyst (principal); Z91.048 Other nonmedicinal substance allergy status; Z79.899 Other long term (current) drug therapy; Z98.890 Other specified postprocedural states
CPT/HCPCS: 10061; 81025; 87070; 87205; J0690; J1100; J1885; J2704; J2765; J3490; J7120; 00300; J2405; J3010

== ENCOUNTER 2023-07-06 00:12 | Inpatient (IN) | payer BC ==
[2023-07-06] MEDS ORDERED: Misoprostol 200 MCG Tab PO PRN (00:58)
[2023-07-06] MEDS ORDERED: Methylergonovine 0.2 MG/1 ML Amp IM PRN ×2 (00:58→09:32)
[2023-07-06] MEDS ORDERED: Sodium Chloride 0.9% 10 ML Syringe FLUSH PRN (00:58)
[2023-07-06] MEDS ORDERED: Sodium Chloride 0.9% 2.5 ML Syringe FLUSH PRN (00:58)
[2023-07-06] MEDS ORDERED: Tranexamic Acid IN NACL,ISO-OS 1,000 MG in Premix Bag 1 BAG IV PRN ×2 (00:58)
[2023-07-06] MEDS ORDERED: Lidocaine 1% 50 ML MDV INJECT PRN (00:58)
[2023-07-06] MEDS ORDERED: Sodium Chloride 0.9% 20 ML SDV IV PRN (00:58)
[2023-07-06] MEDS ORDERED: Water For Irrigation,Sterile 1,000 ML Container IRR PRN (00:58)
[2023-07-06] MEDS ORDERED: Oxytocin/0.9 % Sodium Chloride 30 UNIT/500 ML BAG IV SCH ×2 (01:00→01:15)
[2023-07-06] MEDS ORDERED: Lactated Ringers 1,000 ML IV SCH (01:00)
[2023-07-06] MEDS ORDERED: Ampicillin 2 GM in Sodium Chloride 0.9% 100 ML IV ONE (01:00)
[2023-07-06] MEDS ORDERED: Misoprostol 25 MCG (1/4 of 100 MCG) Tab VAG PRN ×2 (01:06)
[2023-07-06] MEDS ORDERED: Terbutaline 1 MG/ML SDV SUBCUT PRN (01:06)
[2023-07-06] MEDS ORDERED: Ondansetron 4 MG/2 ML SDV IVPUSH PRN (01:11)
[2023-07-06 01:34] LABS: HEMATOCRIT 33.6 % (36.0-46.0); MEAN CORPUSCULAR HEMOGLOBIN 30.3 pg (27.0-32.0); MEAN CORPUSCULAR HGB CONC 35.7 g/dL (31.0-37.0); MEAN CORPUSCULAR VOLUME 84.8 fL (80.0-98.0); MEAN PLATELET VOLUME 9.8 fL (7.40-12.00); RED BLOOD CELL COUNT 3.96 M/uL (4.30-5.90); WHITE BLOOD CELL COUNT,WBC 7.91 K/uL (4.0-11.0)
[2023-07-06] MEDS ORDERED: Ampicillin 1 GM in Sodium Chloride 0.9% 50 ML IV SCH (06:00)
[2023-07-06] MEDS ORDERED: ePHEDrine 50 MG/ML SDV IVPUSH PRN ×2 (07:34)
[2023-07-06] MEDS ORDERED: Phenylephrine HCl 0.5 MG/5 ML AMP IVPUSH PRN (07:34)
[2023-07-06] MEDS ORDERED: Ropivacaine HCl/PF 400 MG in Premix Bag 1 BAG EPIDUR SCH (07:45)
[2023-07-06] MEDS ORDERED: Ketorolac 30 MG/ML SDV ONE (09:08)
[2023-07-06] MEDS ORDERED: Ketorolac 30 MG/ML SDV IVPUSH SCH (09:15)
[2023-07-06] MEDS ORDERED: Docusate Sodium 100 MG Cap PO PRN (09:32)
[2023-07-06] MEDS ORDERED: Ibuprofen 400 MG Tab PO PRN (09:32)
[2023-07-06] MEDS ORDERED: Bisacodyl 10 MG Supp RECTAL PRN (09:32)
[2023-07-06] MEDS ORDERED: Witch Hazel Medicated Pads 40/Jar TOP PRN (09:32)
[2023-07-06] MEDS ORDERED: Lanolin 100% Cream 7 GM Tube TOP PRN (09:32)
[2023-07-06] MEDS ORDERED: Benzocaine/Menthol 20%-0.5% Spray 78 GM Cannister TOP PRN (09:32)
[2023-07-06] MEDS ORDERED: oxyCODONE 5 MG Tab PO PRN (09:32)
[2023-07-06] MEDS ORDERED: Acetaminophen 500 MG Tab PO PRN (09:32)
[2023-07-06 09:46] LABS: PH,UMBILICAL ARTERIAL 7.304 (7.18-7.38); PH,UMBILICAL VENOUS 7.395 (7.25-7.45)
[2023-07-06 13:20] LABS: BASOPHILS PERCENT AUTO 0.1 % (0.0-1.5); EOSINOPHILS PERCENT AUTO 0.1 % (0.0-7.0); HEMATOCRIT 32.1 % (36.0-46.0); HEMOGLOBIN 11.2 g/dL (12.0-16.0); LYMPHOCYTES ABSOLUTE AUTO 1.3 K/uL (0.6-2.4); MEAN CORPUSCULAR HEMOGLOBIN 29.9 pg (27.0-32.0); MEAN CORPUSCULAR HGB CONC 34.9 g/dL (31.0-37.0); MEAN CORPUSCULAR VOLUME 85.8 fL (80.0-98.0); MONOCYTES ABSOLUTE AUTO 0.9 K/uL (0.0-0.8); MONOCYTES PERCENT AUTO 5.3 % (0.0-15.0); NEUTROPHILS ABSOLUTE AUTO 14.2 K/uL (1.4-5.7); NEUTROPHILS PERCENT AUTO 86.5 % (48.0-80.0); NRBC ABSOLUTE 0 K/uL; PLATELET COUNT,PLT 229 K/uL (150-400); RED BLOOD CELL COUNT 3.74 M/uL (4.30-5.90); WHITE BLOOD CELL COUNT,WBC 16.42 K/uL (4.0-11.0)
[2023-07-06] MEDS: Acetaminophen 500 MG Tab PO PRN ×2 (13:20→19:49)
[2023-07-06 13:30] LABS: INR 0.95 (0.86-1.11); PTT,PARTIAL THROMBOPLSTIN TIME 25.8 SEC (23.9-30.7)
[2023-07-06] MEDS: Ibuprofen 800 MG Tab PO PRN (18:27)
[2023-07-07] MEDS: Acetaminophen 500 MG Tab PO PRN ×3 (00:17→10:11)
[2023-07-07] MEDS: Ibuprofen 800 MG Tab PO PRN ×3 (00:18→12:48)
[2023-07-07 05:56] LABS: HEMATOCRIT 27.7 % (36.0-46.0); HEMOGLOBIN 9.4 g/dL (12.0-16.0)
== END 2023-07-07 14:13 | disposition home or self-care (01) | DRG 560 ==
LOC: MW.OBCHECK 00:12 → MW.OB 00:13 → MW.OBCHECK 00:59 → MW.OB 00:59 → OBSVTOIN 08:40 → MW.OB 15:59
PROVIDERS: ADMIT Obstetrics & Gynecology; ATTEND Obstetrics & Gynecology
PROC: 10E0XZZ Delivery of Products of Conception, External Approach (ICD-10-PCS; principal; 2023-07-06)
PROC: 3E0P7VZ Introduction of Hormone into Female Reproductive, Via Natural or Artificial Opening (ICD-10-PCS; 2023-07-06)
PROC: 0KQM0ZZ Repair Perineum Muscle, Open Approach (ICD-10-PCS; 2023-07-06)
PROC: 3E033VJ Introduction of Other Hormone into Peripheral Vein, Percutaneous Approach (ICD-10-PCS; 2023-07-06)
DX: O13.4 Gestational [pregnancy-induced] hypertension without significant proteinuria, complicating childbirth (principal); Z37.0 Single live birth; O99.824 Streptococcus B carrier state complicating childbirth; Z3A.39 39 weeks gestation of pregnancy; O70.1 Second degree perineal laceration during delivery; O90.81 Anemia of the puerperium; D64.9 Anemia, unspecified
CPT/HCPCS: 36415; 59409; 82803; 85014; 85018; 85025; 85027; 85384; 85610; 85730; 86592; A9270-GY; J0290; J1885; J2590; J3490

== ENCOUNTER 2023-07-11 20:22 | Emergency (ER) | payer BC ==
[2023-07-11 22:10] LABS: BASOPHILS PERCENT AUTO 0.2 % (0.0-1.5); EOSINOPHILS ABSOLUTE AUTO 0.2 K/uL (0.0-0.7); EOSINOPHILS PERCENT AUTO 2.6 % (0.0-7.0); HEMATOCRIT 30.2 % (36.0-46.0); HEMOGLOBIN 10.2 g/dL (12.0-16.0); LYMPHOCYTES ABSOLUTE AUTO 2.2 K/uL (0.6-2.4); LYMPHOCYTES PERCENT AUTO 24.5 % (16.0-40.0); MEAN CORPUSCULAR HEMOGLOBIN 29.2 pg (27.0-32.0); MEAN CORPUSCULAR HGB CONC 33.8 g/dL (31.0-37.0); MEAN CORPUSCULAR VOLUME 86.5 fL (80.0-98.0); MONOCYTES ABSOLUTE AUTO 0.7 K/uL (0.0-0.8); MONOCYTES PERCENT AUTO 7.4 % (0.0-15.0); NEUTROPHILS ABSOLUTE AUTO 5.8 K/uL (1.4-5.7); NEUTROPHILS PERCENT AUTO 65.3 % (48.0-80.0); NRBC ABSOLUTE 0 K/uL; PLATELET COUNT,PLT 321 K/uL (150-400); RED BLOOD CELL COUNT 3.49 M/uL (4.30-5.90)
[2023-07-11 22:33] LABS: A/G RATIO 0.8 (0.9-1.6); ALBUMIN 2.7 g/dL (3.4-5.0); BILIRUBIN TOTAL 0.2 mg/dL (0.2-1.0); CALCIUM 8.3 mg/dL (8.5-10.1); CARBON DIOXIDE,CO2 23.3 mmol/L (21.0-32.0); CREATININE 0.5 mg/dL (0.6-1.0); EST CRCL DRUG DOSING (CG) 135.61 mL/min; PROTEIN TOTAL,TP 6.2 g/dL (6.4-8.2)
[2023-07-12 00:20] LABS: APPEARANCE,URINE SLT CLOUDY; BILIRUBIN,URINE NEGATIVE (NEGATIVE); COLOR,URINE YELLOW; GLUCOSE,URINE NEGATIVE (NEGATIVE); KETONES,URINE NEGATIVE (NEGATIVE); LEUKOCYTE ESTERASE,URINE MODERATE (NEGATIVE); NITRITE,URINE NEGATIVE (NEGATIVE); OCCULT BLOOD,URINE LARGE (NEGATIVE); PH,URINE 6.5 (5.0-8.0); PROTEIN,URINE NEGATIVE (NEGATIVE); UROBILINOGEN,URINE 0.2 EU/dL (<2.0)
[2023-07-12 00:29] LABS: BACTERIA,URINE FEW (NEGATIVE); EPITHELIAL CELLS,URINE FEW (NONE-FEW); RBC,URINE 0-3 (0-2/HPF)
== END 2023-07-12 | disposition home or self-care (01) ==
LOC: MW.ED 20:22
DX: O99.893 Other specified diseases and conditions complicating puerperium (principal); R19.7 Diarrhea, unspecified; R42 Dizziness and giddiness; Z91.048 Other nonmedicinal substance allergy status
CPT/HCPCS: 36415; 76817; 76817-26; 80053; 81001; 85025; 86850; 86900; 86901; 87086; 99283; 99284

== ENCOUNTER 2024-10-03 11:19 | Day surgery (SDC) | payer BC ==
[~2024-10-03 11:19] MED LIST changes: -Lactated Ringers 1,000 ML IV SCH; -Sodium Chloride 0.9% 10 ML SDV IV PRN; +Sodium Chloride 0.9% 20 ML SDV IV PRN; -ceFAZolin 2 GM in Premix Bag 1 BAG IV ONE
[2024-10-03] MEDS: Lactated Ringers 1,000 ML IV SCH (12:01)
[2024-10-03] MEDS ORDERED: propofoL 500 MG/50 ML 50 ML ONE (13:32)
== END 2024-10-03 14:55 | disposition home or self-care (01) ==
LOC: MW.SDS 11:19
PROVIDERS: ATTEND Surgery
DX: R19.4 Change in bowel habit (principal); J45.998 Other asthma; Z79.899 Other long term (current) drug therapy
CPT/HCPCS: 45380; 81025; J2704; J7120